=== PATIENT | female | born 1980 | race Caucasian/White ===

== ENCOUNTER 2025-03-14 12:43 | Emergency (ER) | payer OTHER ==
[~2025-03-14] VITALS: Ht 165.1 cm; Wt 68.2 kg
[2025-03-14 12:50] VITALS: BP 126/84; PULSE 65; RESP 18; TEMP 98.1; O2SAT 100
[2025-03-14] MEDS ORDERED: ASPI-1450 PO (13:04)
[2025-03-14] MEDS ORDERED: METO25XL PO (13:04)
[2025-03-14] MEDS ORDERED: ATOR20TA PO (13:04)
[2025-03-14 13:28] LABS: PLATELET COUNT (AUTO) 271 K/uL (150-450); RED BLOOD CELL COUNT(AUTO) 4.52 MIL/uL (4.00-5.20); RED CELL DISTRIBUTION WIDTH 15.2 % (11.5-14.5); WHITE BLOOD COUNT (AUTO) 5.7 K/uL (4.5-11.0)
[2025-03-14 13:34] LABS: CALCIUM, TOTAL 9.0 mg/dL (8.8-10.5); CREATININE 0.79 mg/dL (0.60-1.30); GLOMERULAR FILTR. RATE CALC > 60 mL/min (>60); GLUCOSE,RANDOM 104 mg/dL (70-110); SODIUM SERUM 139 mmol/L (136-145); UREA NITROGEN, BLOOD 9 mg/dL (7-18)
[2025-03-14 13:42] LABS: APPEARANCE,URINE HAZY (CLEAR); GLUCOSE, URINE (UA) NEGATIVE (NEGATIVE); LEUKOCYTE ESTERASE ,URINE TRACE (NEGATIVE); NITRATE,URINE NEGATIVE (NEGATIVE); OCCULT BLOOD,URINE NEGATIVE (NEGATIVE); SPECIFIC GRAVITIY, URINE 1.010 (1.003-1.030)
[2025-03-14 13:47] LABS: HCG,QUANTITATIVE 1 mIU/mL (0-6)
[2025-03-14 13:58] LABS: SQUAMOUS EPITHELIAL CELL,UR Many /LPF (None Seen)
[2025-03-14] MEDS ORDERED: SODIUM CHLORIDE 0.9% 100 ML ONE (14:41)
[2025-03-14] MEDS ORDERED: IOHEXOL 350 MG/ML 100 ML VIAL ONE (14:41)
[2025-03-14] MEDS ORDERED: 0.9% SODIUM CHLORIDE 10 ML SYRINGE IVP ONE (14:42)
[2025-03-14 15:03] LABS: ASPARTATE AMINOTRANSFERASE 15.0 U/L (15-37); TOTAL PROTEIN, SERUM 7.6 g/dL (6.4-8.2)
[2025-03-14] MEDS: KETOROLAC TROMETHAMINE 30 MG/ML VIAL IVP ONE (15:33)
[2025-03-14] MEDS: ONDANSETRON HCL 4 MG/2 ML VIAL IVP ONE (15:33)
[2025-03-14] MEDS: CefTRIAXone 1 GM/DEXTROSE 50 ML IV ONE (15:33)
[2025-03-14] MEDS ORDERED: MORPHINE SULFATE 2 MG/ML SYRINGE IVP ONE (17:45)
[2025-03-14] MEDS ORDERED: IBUP-1492 PO (17:46)
[2025-03-14] MEDS ORDERED: CEFP200T12 PO (17:46)
[2025-03-14] MEDS ORDERED: ACET-3385 PO (17:46)
== END 2025-03-14 18:13 | disposition home or self-care (01) ==
LOC: EMS 12:43
DX: K80.20 Calculus of gallbladder without cholecystitis without obstruction (principal); N39.0 Urinary tract infection, site not specified; R10.A2 Flank pain, left side; R11.0 Nausea; E78.00 Pure hypercholesterolemia, unspecified; N89.8 Other specified noninflammatory disorders of vagina; Z87.442 Personal history of urinary calculi; Z79.82 Long term (current) use of aspirin; Z79.899 Other long term (current) drug therapy
CPT/HCPCS: 99285; 74177; 96365; 76705; 96375; 80048; 80076; 81001; 83690; 84702; 85025; 87086; 36415; J1885; Q9967; J0696; J2405; J7050